=== PATIENT | male | born 1990 | race Caucasian/White ===

== ENCOUNTER 2017-02-14 08:10 | Emergency (ER) | payer SELFPAY ==
[~2017-02-14] VITALS: Ht 157.5 cm; Wt 65.3 kg
[2017-02-14] MEDS ORDERED: diphenhydrAMINE 50 MG/ML INJ (BENADRYL) IVP ONE (09:00)
[2017-02-14] MEDS ORDERED: FAMOTIDINE 20MG/2ML IV (PEPCID) IVP ONE (09:00)
[2017-02-14] MEDS ORDERED: methylPREDNISolone 125 MG (Solu-MEDROL) VIAL IVP ONE (09:00)
[2017-02-14 09:07] LABS: BASOPHILS % (AUTO) 0 % (0-10); EOSINOPHILS # (AUTO) 0.2 10^3/uL (0.0-0.3); EOSINOPHILS % (AUTO) 2 % (0-10); LYMPHOCYTES # (AUTO) 1.6 X 10^3 (1.0-4.0); LYMPHOCYTES % (AUTO) 16 % (12-44); MEAN CORPUSCULAR HEMOGLOBIN 30 PG (25-34); MEAN CORPUSCULAR HGB CONC 35 G/DL (32-36); MEAN CORPUSCULAR VOLUME 87 FL (80-99); MEAN PLATELET VOLUME 9.5 FL (7.4-10.4); MONOCYTES # (AUTO) 0.8 X 10^3 (0.0-1.0); MONOCYTES % (AUTO) 8 % (0-12); NEUTROPHILS # (AUTO) 7.6 X 10^3 (1.8-7.8); NEUTROPHILS % (AUTO) 74 % (42-75); PLATELET COUNT 217 10^3/uL (130-400); RED BLOOD COUNT 5.11 10^6/uL (4.35-5.85); RED CELL DISTRIBUTION WIDTH 13.2 % (10.0-14.5); WHITE BLOOD COUNT 10.3 10^3/uL (4.3-11.0)
[2017-02-14 09:15] LABS: BILIRUBIN,URINE NEGATIVE (NEGATIVE); KETONES,URINE NEGATIVE (NEGATIVE); LEUKOCYTE ESTERASE ,URINE NEGATIVE (NEGATIVE); NITRITE,URINE NEGATIVE (NEGATIVE); PH,URINE 5 (5-9); PROTEIN,URINE NEGATIVE (NEGATIVE); UROBILINOGEN,URINE NORMAL (NORMAL)
[2017-02-14 09:26] LABS: ALANINE AMINOTRANSFERASE 22 U/L (0-55); ALBUMIN 4.3 G/DL (3.2-4.5); ANION GAP 10 MMOL/L (5-14); ASPARTATE AMINO TRANSFERASE 18 U/L (5-34); BILIRUBIN,TOTAL 0.4 MG/DL (0.1-1.0); BLOOD UREA NITROGEN 10 MG/DL (7-18); BUN/CREATININE RATIO 9; CALCIUM 8.8 MG/DL (8.5-10.1); CARBON DIOXIDE 26 MMOL/L (21-32); CHLORIDE 105 MMOL/L (98-107); CREATININE SERUM 1.11 MG/DL (0.60-1.30); GFR ESTIMATED > 60; GLUCOSE 104 MG/DL (70-105); POTASSIUM 3.6 MMOL/L (3.6-5.0); SODIUM 141 MMOL/L (135-145); TOTAL PROTEIN 7.8 G/DL (6.4-8.2); hs C REACTIVE PROTEIN 1.58 MG/DL (0.00-0.50)
[2017-02-14 09:28] LABS: WBC,URINE 0 /HPF
[2017-02-14 09:42] LABS: ERYTHROCYTE SEDIMENTATION RATE 8 MM/HR (0-15)
[2017-02-14] MEDS ORDERED: FAMO-119 PO (10:41)
[2017-02-14] MEDS ORDERED: AMOX500C2 PO (10:41)
[2017-02-14] MEDS ORDERED: PRD20T PO (10:41)
--- NOTE | 2017-02-14 10:44 | ED General ---
General Chief Complaint: Allergic Reaction Stated Complaint: FACIAL SWELLING Nursing Triage Note: AMBULATED TO ROOM 07 WITH COMPLAINTS OF FACIAL SWELLING STARTING SAT THAT HAS PROGRESSED INTO HIVES. PT STATES HE HAS BEEN TAKING BENADRYL BUT IT DOES NOT HELP. Nursing Sepsis Screen: No Definite Risk Source of Information: Patient Exam Limitations: No Limitations History of Present Illness Time Seen by Provider: 08:40 Initial Comments This 26-year-old gentleman presents to the emergency room with rash and swelling of the torso, upper extremities, and face that started about 48 hours ago. He is uncertain of exposures that may have caused the problem. He has had detergents sensitivities in the past but has not changed detergents recently. He also reports doing some weed eating a couple days prior to onset. Symptoms started with eye irritation. He has significant swelling of the face especially in the periorbital region. The rash has a fine maculopapular a appearance and is erythematous. Patient denies itching. He has no true hives. Benadryl taken at home was not helpful. He denies any recent illness, fever, or sore throat. He denies any tick bites. There is no involvement of the tongue, lips, or throat. He denies any difficulty breathing. Allergies and Home Medications Allergies Coded Allergies: No Known Drug Allergies (Unverified , 02/14/17) Home Medications Amoxicillin 500 Mg Capsule, 1,000 MG PO BID, #28 Prescribed by: GORGE PALOMARES on 02/14/17 1041 Famotidine 20 Mg Tablet, 20 MG PO BID, #20 Prescribed by: GORGE PALOMARES on 02/14/17 1041 Prednisone 20 Mg Tab, 20 MG PO DAILY, #5 Prescribed by: GORGE PALOMARES on 02/14/17 1041 Constitutional: no symptoms reported EENTM: see HPI Respiratory: no symptoms reported Cardiovascular: no symptoms reported Gastrointestinal: no symptoms reported Genitourinary: no symptoms reported Musculoskeletal: no symptoms reported Skin: see HPI Psychiatric/Neurological: No Symptoms Reported Hematologic/Lymphatic: No Symptoms Reported Immunological/Allergic: see HPI Past Stvnnaq-Vrvxdt-[id number] Hx Patient Social History Alcohol Use: Rarely Uses Recreational Drug Use: No (PAST HX OF POT) Smoking Status: Current Everyday Smoker Recent Foreign Travel: No Contact w/Someone Who Travel: No Recent Infectious Disease Expo: No Surgeries HX Surgeries: Yes Surgeries: Appendectomy, Orthopedic (hip effusion) Respiratory Hx Respiratory Disorders: No Cardiovascular Hx Cardiac Disorders: No Neurological Hx Neurological Disorders: No Genitourinary Hx Genitourinary Disorders: No Gastrointestinal Hx Gastrointestinal Disorders: No Musculoskeletal Hx Musculoskeletal Disorders: No Endocrine Hx Endocrine Disorders: No HEENT HX ENT Disorders: No Cancer Hx Cancer: No Psychosocial Hx Psychiatric Problems: No Physical Exam Vital Signs Vital Sign - Last 12Hours 02/14/17 08:15 Temp 98.8 Pulse 103 Resp 16 B/P (MAP) 139/72 Pulse Ox 98 Capillary Refill : Less Than 3 Seconds General Appearance: No Apparent Distress, WD/WN HEENT: PERRL/EOMI, TMs Normal, Pharynx Normal, Other (facial edema especially periorbital, and involves the scalp as well. 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4-10.4 FL Neutrophils (%) (Auto) 74 42-75 % Lymphocytes (%) (Auto) 16 12-44 % Monocytes (%) (Auto) 8 0-12 % Eosinophils (%) (Auto) 2 0-10 % Basophils (%) (Auto) 0 0-10 % Neutrophils # (Auto) 7.6 1.8-7.8 X 10^3 Lymphocytes # (Auto) 1.6 1.0-4.0 X 10^3 Monocytes # (Auto) 0.8 0.0-1.0 X 10^3 Eosinophils # (Auto) 0.2 0.0-0.3 10^3/uL Basophils # (Auto) 0.0 0.0-0.1 10^3/uL Erythrocyte Sedimentation Rate 8 0-15 MM/HR Sodium Level 141 135-145 MMOL/L Potassium Level 3.6 3.6-5.0 MMOL/L Chloride Level 105 98-107 MMOL/L Carbon Dioxide Level 26 21-32 MMOL/L Anion Gap 10 5-14 MMOL/L Blood Urea Nitrogen 10 7-18 MG/DL Creatinine 1.11 0.60-1.30 MG/DL Estimat Glomerular Filtration Rate > 60 BUN/Creatinine Ratio 9 Glucose Level 104 70-105 MG/DL Calcium Level 8.8 8.5-10.1 MG/DL Total Bilirubin 0.4 0.1-1.0 MG/DL Aspartate Amino Transf (AST/SGOT) 18 5-34 U/L Alanine Aminotransferase (ALT/SGPT) 22 0-55 U/L Alkaline Phosphatase 61 40-136 U/L C-Reactive Protein High Sensitivity 1.58 H 0.00-0.50 MG/DL Total Protein 7.8 6.4-8.2 G/DL Albumin 4.3 3.2-4.5 G/DL Urine Color YELLOW Urine Clarity CLEAR Urine pH 5 5-9 Urine Specific [place] 1.025 H 1.016-1.022 Urine Protein NEGATIVE NEGATIVE Urine Glucose (UA) NEGATIVE NEGATIVE Urine Ketones NEGATIVE NEGATIVE Urine Nitrite NEGATIVE NEGATIVE Urine Bilirubin NEGATIVE NEGATIVE Urine Urobilinogen NORMAL NORMAL MG/DL Urine Leukocyte Esterase NEGATIVE NEGATIVE Urine RBC (Auto) NEGATIVE NEGATIVE Urine RBC 0 /HPF Urine WBC 0 /HPF Urine Crystals NONE /LPF Urine Bacteria TRACE /HPF Urine Casts NONE /LPF Urine Mucus NEGATIVE /LPF Urine Culture Indicated NO Group A Streptococcus Screen NEGATIVE NEGATIVE My Orders Orders - GORGE CONLEY MD Cbc With Automated Diff (02/14/17 08:49) Comprehensive Metabolic Panel (02/14/17 08:49) Hs C Reactive Protein (02/14/17 08:49) Rapid Strep A Screen (02/14/17 08:49) Ua Culture If Indicated (02/14/17 08:49) Erythrocyte Sedimentation Rate (02/14/17 08:49) Saline Lock/Iv-Start (02/14/17 08:49) Famotidine Injection (Pepcid Injection) (02/14/17 09:00) Methylprednisolone Sod Succ (Solu-Medrol (02/14/17 09:00) Diphenhydramine Injection (Benadryl Inje (02/14/17 09:00) Anti Streptolysin O Titer (02/14/17 09:53) Medications Given in ED Current Medications Medications Dose Ordered Sig/Sandra Route Start Time Stop Time Status Last Admin Dose Admin Diphenhydramine HCl 25 mg ONCE ONCE IVP 02/14/17 09:00 02/14/17 09:01 DC 02/14/17 09:03 25 MG Famotidine 20 mg ONCE ONCE IVP 02/14/17 09:00 02/14/17 09:01 DC 02/14/17 09:03 20 MG Methylprednisolone Sodium Succinate 125 mg ONCE ONCE IVP 02/14/17 09:00 02/14/17 09:01 DC 02/14/17 09:03 125 MG Vital Signs/I&O Vital Sign - Last 12Hours 02/14/17 08:15 Temp 98.8 Pulse 103 Resp 16 B/P (MAP) 139/72 Pulse Ox 98 Blood Pressure Mean: 94 Progress Note : Progress Note Patient was treated with IV Benadryl 25 mg, Pepcid 20 mg, and Solu-Medrol 125 mg. He had modest improvement in the erythema but rash and swelling persisted. The cause of the rash and swelling is uncertain. Patient had no itching or true hives which brings the assumption of allergy into question. The fine rash on the abdomen and chest had an appearance similar to a streptococcal exanthem ( scarlatina). Rapid strep test was negative. ASO titer was added to the labs that is a send out. Patient will be treated with Pepcid and prednisone for possible allergic reaction and amoxicillin for possible strep rash. Return precautions were reviewed. Departure Impression Impression: Primary Impression: Rash Additional Impression: Facial swelling Disposition: HOME, SELF-CARE Condition: Improved Departure-Patient Inst. Decision time for Depature: 10:38 Referrals: NO,LOCAL PHYSICIAN (PCP) Primary Care Physician Patient Instructions: Skin Rash Add. Discharge Instructions: Monitor your environment and exposures such as detergents, plant contacts, foods , etc. to try to determine what may have caused this reaction. A lab marker called ASO titer was sent to evaluate for possible recent strep exposure. Continue antibiotics until this lab value returns. Follow-up with your primary care provider in about 5-7 days to review the results. Take prednisone and Pepcid (famotidine) as prescribed. You may additionally take Benadryl (diphenhydramine) up to 50 mg every 4 hours as needed to further control rash or itching. Return to care if symptoms worsen. If you develop tongue or lip swelling, tightness in your throat, or difficulty breathing, return to the emergency room immediately or call 911. All discharge instructions reviewed with patient and/or family. Voiced understanding. Scripts Amoxicillin (Amoxicillin) 500 Mg Capsule 1000 MG PO BID, #28 CAP Prov: GORGE CONLEY MD 02/14/17 Prednisone (Prednisone) 20 Mg Tab 20 MG PO DAILY, #5 TAB Prov: GORGE CONLEY MD 02/14/17 Famotidine (Pepcid) 20 Mg Tablet 20 MG PO BID, #20 TAB Prov: GORGE CONLEY MD 02/14/17 GORGE CONLEY MD February 14, 2017 10:43
[2017-02-14 10:49] VITALS: BP 121/80
== END 2017-02-14 10:49 | disposition home or self-care (01) ==
LOC: ER 08:13
DX: R21 Rash and other nonspecific skin eruption (principal); R22.0 Localized swelling, mass and lump, head; F17.210 Nicotine dependence, cigarettes, uncomplicated
CPT/HCPCS: 36415; 80053; 81000; 85025; 85652; 86060; 86141; 87430